=== PATIENT | female | born 1965 | race Caucasian/White ===

== ENCOUNTER 2016-10-02 08:08 | Day surgery (SDC) | payer OTHER ==
[~2016-10-02] VITALS: Ht 170.2 cm; Wt 78.0 kg
[~2016-10-02 08:08] MED LIST: LACTATED RINGERS 1,000 ML IV SCH; LIDOCAINE 4% TOPICAL 4.5 ML SYR ONE; SIMETHICONE 40 MG/0.6 ML (MYLICON DROPS) ORAL SYRINGE ONE; SODIUM CHLORIDE FLUSH 3 ML SYR IV PRN
[2016-10-02 08:33] VITALS: BP 117/68
[2016-10-02] MEDS ORDERED: ONDANSETRON 2 MG/ML (Z0FRAN) 2 ML VIAL IV ONE (08:45)
[2016-10-02] MEDS ORDERED: SCOPOLAMINE 1.5 MG (TRANSDERM-SCOP) PATCH TD ONE (08:45)
[2016-10-02] MEDS ORDERED: diphenhydrAMINE 50 MG/ML INJ (BENADRYL) IV ONE (08:45)
[2016-10-02] MEDS ORDERED: INSULIN REGULAR 1 UNIT/0.01 ML DOSE IV ONE (08:55)
[2016-10-02] MEDS ORDERED: ALFENTANIL 500 MCG/ML (ALFENTA) 5 ML AMP IV ONE (09:31)
[2016-10-02] MEDS ORDERED: LIDOCAINE 2% BOLUS 100 MG/5 ML (XYLOCAINE) SYRINGE ONE (09:31)
[2016-10-02] MEDS ORDERED: MIDAZOLAM 2 MG/2 ML (VERSED) VIAL ONE (09:31)
[2016-10-02] MEDS ORDERED: PROPOFOL 20 ML IV ONE (09:31)
[2016-10-02 10:21] VITALS: BP 114/67
[2016-10-02 10:36] VITALS: BP 122/74
== END 2016-10-02 10:44 | disposition home or self-care (01) ==
LOC: ASC 08:08
PROVIDERS: ATTEND Surgery
DX: K29.80 Duodenitis without bleeding (principal); K29.30 Chronic superficial gastritis without bleeding; K20.9 Esophagitis, unspecified; E11.9 Type 2 diabetes mellitus without complications; Z79.84 Long term (current) use of oral hypoglycemic drugs
CPT/HCPCS: 43239; 87077; J1200; J1815; J2250; J2405; J7120